=== PATIENT | male | born 1965 | race Caucasian/White ===

== ENCOUNTER 2017-07-09 14:36 | Emergency (ER) | payer MEDICARE, OTHER ==
[2017-07-09] MEDS ORDERED: SODIUM CHLORIDE 0.9% 1,000 ML IV ONE (15:33)
[2017-07-09 15:55] LABS: Basophils % (A) 0 %; Eosinophils # (A) 0.1 k/uL (0-0.7); Eosinophils % (A) 1 %; HCT 44.3 % (39.0-53.0); HGB 15.4 gm/dL (13.0-17.5); Lymphocytes # (A) 1.7 k/uL (1.0-4.8); Lymphocytes % (A) 17 %; MCH 29.9 pg (25.0-35.0); MCHC 34.9 g/dL (31.0-37.0); MCV 85.9 fL (80.0-100.0); Mean Platelet Volume 7.2; Monocytes # (A) 0.7 k/uL (0-1.0); Monocytes % (A) 8 %; Neutrophils % (A) 72 %; Platelet Count 193 k/uL (150-450); RBC 5.16 m/uL (4.30-5.90); RDW 12.5 % (11.5-15.5); WBC 9.6 k/uL (3.8-10.6)
[2017-07-09 15:59] LABS: Appearance,Urine Clear (Clear); Bilirubin,Urine Negative (Negative); Blood,Urine Negative (Negative); Color,Urine Light Yellow; Glucose,Urine (UA) Negative (Negative); Ketones,Urine Negative (Negative); Leukocyte Esterase,Urine Negative (Negative); Nitrite,Urine Negative (Negative); Protein,Urine Negative (Negative); Specific Gravity,Urine 1.008 (1.001-1.035); Urobilinogen,Urine <2.0 mg/dL (<2.0)
[2017-07-09 16:09] LABS: ALT 18 U/L (21-72); AST 16 U/L (17-59); Albumin 3.7 g/dL (3.5-5.0); Alcohol <10 mg/dL; Alkaline Phosphatase 52 U/L (38-126); Anion Gap 11 mmol/L; Blood Urea Nitrogen 11 mg/dL (9-20); Calcium 8.8 mg/dL (8.4-10.2); Carbon Dioxide 26 mmol/L (22-30); Chloride 106 mmol/L (98-107); Glucose 81 mg/dL (74-99); Lipase 46 U/L (23-300); Potassium 4.2 mmol/L (3.5-5.1); Sodium 143 mmol/L (137-145); Total Bilirubin 0.6 mg/dL (0.2-1.3); Total Protein 6.1 g/dL (6.3-8.2)
[2017-07-09 16:13] LABS: Phencyclidine Screen,Urine Not Detected (NotDetected); Urn Cannabinoid Scrn Not Detected (NotDetected)
[2017-07-09 16:14] LABS: Amphetamine Screen,Urine Not Detected (NotDetected); Barbiturate Screen,Urine Not Detected (NotDetected); Benzodiazepines Screen,Urine Not Detected (NotDetected); Cocaine Screen,Urine Not Detected (NotDetected); Methadone Screen, Urine Not Detected (NotDetected); Opiate Screen,Urine Not Detected (NotDetected); Oxycodone Screen, Urine Not Detected (NotDetected); Tricyclic Antidepressant,Urine Not Detected (NotDetected)
--- NOTE | 2017-07-09 16:39 | ED ---
General Adult HPI - General Chief complaint: Anxiety Stated complaint: mental health Time Seen by Provider: 07/09/17 14:59 Source: patient, RN notes reviewed Mode of arrival: ambulatory Limitations: no limitations - History of Present Illness Initial comments: This is a 51-year-old male presents emergency Department with complaints of generalized fatigue. Patient states that he feels that his medications are making him tired and is told his psychiatrist and primary this. Patient states is not suicidal or homicidal. He states that he does have underlying issues anxiety but states that usually anxiety related to not being able 3 days viable. Patient denies any physical complaints including chest pain, shortness breath, headache, dizziness, nausea, vomiting, or constipation. He states he's eating well. He denies any alcohol abuse no drug abuse. Patient has no abdominal pain. - Related Data Home Medications Medication Instructions Recorded Confirmed Atorvastatin [Lipitor] 40 mg PO DAILY 07/09/17 07/09/17 Cholecalciferol [Vitamin D3] 2,000 unit PO DAILY 07/09/17 07/09/17 Losartan Potassium [Cozaar] 25 mg PO DAILY 07/09/17 07/09/17 Metoprolol Succinate (ER) [Toprol 25 mg PO DAILY 07/09/17 07/09/17 Xl] Previous Rx's Medication Instructions Recorded Aspirin 81 mg PO DAILY #30 chew 02/27/16 Divalproex [Depakote] 1,000 mg PO HS #60 tablet. 02/27/16 Allergies Allergy/AdvReac Type Severity Reaction Status Date / Time No Known Allergies Allergy Verified 07/09/17 15:41 Review of Systems ROS Statement: Those systems with pertinent positive or pertinent negative responses have been documented in the HPI. ROS Other: All systems not noted in ROS Statement are negative. Past Medical History Past Medical History: Hyperlipidemia, Hypertension History of Any Multi-Drug Resistant Organisms: None Reported Past Surgical History: No Surgical Hx Reported Past Psychological History: Schizophrenia Smoking Status: Current every day smoker Past Alcohol Use History: None Reported Past Drug Use History: None Reported - Past Family History Father Additional Family Medical History / Comment(s): Father is alive at age 85. Patient denies doing any of this history. Mother Additional Family Medical History / Comment(s): Mother is alive at age 84. Patient denies knowing any of her medical history. Brother(s) Additional Family Medical History / Comment(s): Patient has 2 brothers and one sister does not know other medical history. Patient does not have any children. General Exam Limitations: no limitations General appearance: alert, in no apparent distress Head exam: Present: atraumatic, normocephalic, normal inspection Eye exam: Present: normal appearance, PERRL, EOMI. Absent: scleral icterus, conjunctival injection, periorbital swelling ENT exam: Present: normal exam, normal oropharynx, mucous membranes moist, TM's normal bilaterally, normal external ear exam Neck exam: Present: normal inspection, full ROM. Absent: tenderness, meningismus, lymphadenopathy Respiratory exam: Present: normal lung sounds bilaterally. Absent: respiratory distress, wheezes, rales, rhonchi, stridor Cardiovascular Exam: Present: regular rate, normal rhythm, normal heart sounds. Absent: systolic murmur, diastolic murmur, rubs, gallop, clicks GI/Abdominal exam: Present: soft, normal bowel sounds. Absent: distended, tenderness, guarding, rebound, rigid Back exam: Absent: CVA tenderness (R), CVA tenderness (L) Neurological exam: Present: alert, oriented X3, CN II-XII intact Psychiatric exam: Present: normal affect, normal mood. Absent: homicidal ideation, suicidal ideation Skin exam: Present: warm, dry, intact, normal color. Absent: rash Course Vital Signs 07/09/17 14:48 Temperature 99.1 F Pulse Rate 100 Respiratory 20 Rate Blood Pressure 118/73 O2 Sat by Pulse 97 Oximetry - Reevaluation(s) Reevaluation #1: 07/09/17 18:31 Patient is eating a sandwich in the room in no distress, has improved at this time. Patient was updated on the results. Medical Decision Making - Medical Decision Making 31-year-old unrestrained for fatigue. Patient lab work is unremarkable he is tolerated food in the emergency Department an IV fluids and states he feels improved. Patient has no specific complaints is not homicidal is not suicidal he has no depression he states that his anxiety is under control. Patient we discharged at this time return parameters were discussed. - Lab Data Result diagrams: 07/09/17 15:40 07/09/17 15:40 Lab Results 07/09/17 07/09/17 07/09/17 Range/Units 15:40 15:40 15:40 WBC 9.6 (3.8-10.6) k/uL RBC 5.16 (4.30-5.90) m/uL Hgb 15.4 (13.0-17.5) gm/dL Hct 44.3 (39.0-53.0) % MCV 85.9 (80.0-100.0) fL MCH 29.9 (25.0-35.0) pg MCHC 34.9 (31.0-37.0) g/dL RDW 12.5 (11.5-15.5) % Plt Count 193 (150-450) k/uL Neutrophils % 72 % Lymphocytes % 17 % Monocytes % 8 % Eosinophils % 1 % Basophils % 0 % Neutrophils # 7.0 (1.3-7.7) k/uL Lymphocytes # 1.7 (1.0-4.8) k/uL Monocytes # 0.7 (0-1.0) k/uL Eosinophils # 0.1 (0-0.7) k/uL Basophils # 0.0 (0-0.2) k/uL Sodium 143 (137-145) mmol/L Potassium 4.2 (3.5-5.1) mmol/L Chloride 106 (98-107) mmol/L Carbon Dioxide 26 (22-30) mmol/L Anion Gap 11 mmol/L BUN 11 (9-20) mg/dL Creatinine 0.70 (0.66-1.25) mg/dL Est GFR (CKD-EPI)AfAm >90 (>60 ml/min/1.73 sqM) Est GFR (CKD-EPI)NonAf >90 (>60 ml/min/1.73 sqM) Glucose 81 (74-99) mg/dL Calcium 8.8 (8.4-10.2) mg/dL Total Bilirubin 0.6 (0.2-1.3) mg/dL AST 16 L (17-59) U/L ALT 18 L (21-72) U/L Alkaline Phosphatase 52 (38-126) U/L Total Protein 6.1 L (6.3-8.2) g/dL Albumin 3.7 (3.5-5.0) g/dL Lipase 46 (23-300) U/L Urine Color Urine Appearance (Clear) Urine pH (5.0-8.0) Ur Specific [place] (1.001-1.035) Urine Protein (Negative) Urine Glucose (UA) (Negative) Urine Ketones (Negative) Urine Blood (Negative) Urine Nitrite (Negative) Urine Bilirubin (Negative) Urine Urobilinogen (<2.0) mg/dL Ur Leukocyte Esterase (Negative) Urine Opiates Screen (NotDetected) Ur Oxycodone Screen (NotDetected) Urine Methadone Screen (NotDetected) Ur Propoxyphene Screen (NotDetected) Ur Barbiturates Screen (NotDetected) Valproic Acid 65.1 ug/mL U Tricyclic Antidepress (NotDetected) Ur Phencyclidine Scrn (NotDetected) Ur Amphetamines Screen (NotDetected) U Methamphetamines Scrn (NotDetected) U Benzodiazepines Scrn (NotDetected) Urine Cocaine Screen (NotDetected) U Marijuana (THC) Screen (NotDetected) Serum Alcohol <10 mg/dL 07/09/17 Range/Units 15:41 WBC (3.8-10.6) k/uL RBC (4.30-5.90) m/uL Hgb (13.0-17.5) gm/dL Hct (39.0-53.0) % MCV (80.0-100.0) fL MCH (25.0-35.0) pg MCHC (31.0-37.0) g/dL RDW (11.5-15.5) % Plt Count (150-450) k/uL Neutrophils % % Lymphocytes % % Monocytes % % Eosinophils % % Basophils % % Neutrophils # (1.3-7.7) k/uL Lymphocytes # (1.0-4.8) k/uL Monocytes # (0-1.0) k/uL Eosinophils # (0-0.7) k/uL Basophils # (0-0.2) k/uL Sodium (137-145) mmol/L Potassium (3.5-5.1) mmol/L Chloride (98-107) mmol/L Carbon Dioxide (22-30) mmol/L Anion Gap mmol/L BUN (9-20) mg/dL Creatinine (0.66-1.25) mg/dL Est GFR (CKD-EPI)AfAm (>60 ml/min/1.73 sqM) Est GFR (CKD-EPI)NonAf (>60 ml/min/1.73 sqM) Glucose (74-99) mg/dL Calcium (8.4-10.2) mg/dL Total Bilirubin (0.2-1.3) mg/dL AST (17-59) U/L ALT (21-72) U/L Alkaline Phosphatase (38-126) U/L Total Protein (6.3-8.2) g/dL Albumin (3.5-5.0) g/dL Lipase (23-300) U/L Urine Color Light Yellow Urine Appearance Clear (Clear) Urine pH 7.0 (5.0-8.0) Ur Specific [place] 1.008 (1.001-1.035) Urine Protein Negative (Negative) Urine Glucose (UA) Negative (Negative) Urine Ketones Negative (Negative) Urine Blood Negative (Negative) Urine Nitrite Negative (Negative) Urine Bilirubin Negative (Negative) Urine Urobilinogen <2.0 (<2.0) mg/dL Ur Leukocyte Esterase Negative (Negative) Urine Opiates Screen Not Detected (NotDetected) Ur Oxycodone Screen Not Detected (NotDetected) Urine Methadone Screen Not Detected (NotDetected) Ur Propoxyphene Screen Not Detected (NotDetected) Ur Barbiturates Screen Not Detected (NotDetected) Valproic Acid ug/mL U Tricyclic Antidepress Not Detected (NotDetected) Ur Phencyclidine Scrn Not Detected (NotDetected) Ur Amphetamines Screen Not Detected (NotDetected) U Methamphetamines Scrn Not Detected (NotDetected) U Benzodiazepines Scrn Not Detected (NotDetected) Urine Cocaine Screen Not Detected (NotDetected) U Marijuana (THC) Screen Not Detected (NotDetected) Serum Alcohol mg/dL Disposition Clinical Impression: Fatigue Disposition: HOME SELF-CARE Condition: Stable Instructions: Fatigue (ED) Additional Instructions: Please return to the Emergency Department if symptoms worsen or any other concerns. Is patient prescribed a controlled substance at d/c from ED?: No Referrals: Polo Alejandro MD [STAFF PHYSICIAN] - 1-2 days Time of Disposition: 18:32
[2017-07-09 18:42] VITALS: BP 112/74; PULSE 80; RESP 16; TEMP 97.9
== END 2017-07-09 19:14 | disposition home or self-care (01) ==
LOC: EC 14:36 → EEVIPCON 14:36 → EC 19:14
DX: R53.83 Other fatigue (principal); F41.9 Anxiety disorder, unspecified; E78.5 Hyperlipidemia, unspecified; I10 Essential (primary) hypertension; F17.200 Nicotine dependence, unspecified, uncomplicated; Z79.899 Other long term (current) drug therapy
CPT/HCPCS: 36415; 80053; 80164; 80306; 80320; 81003; 83690; 85025; 96360; 99283

== ENCOUNTER 2018-08-22 11:09 | Observation (INO) | payer MEDICARE, OTHER ==
[2018-08-22] MEDS ORDERED: KETOROLAC 60 MG/2 ML VIAL IM STA (11:34)
--- NOTE | 2018-08-22 11:37 | ED ---
Lower Extremity Injury HPI - General Chief Complaint: Extremity Injury, Lower Stated Complaint: HIP PAIN Time Seen by Provider: 08/22/18 11:24 Source: patient, EMS Mode of arrival: ambulatory Limitations: altered mental status - History of Present Illness Initial Comments: 52-year-old male with history of schizophrenia/seizure disorder presenting today for chief complaint of bilateral hip pain x 2-3 weeks. Patient states he fell to 3 weeks ago he states he has had hip pain since. Patient states he has had difficulty walking secondary to the pain. Denies back pain. Patient denies numbness tingling loss sensation loss of bowel bladder control urinary retention of the lower extremity. He denies any fever chills or IV drug use. Patient is a member added [facility] home. His bedroom in on the second floor and he is unable to ambulate up the stairs. Patient denies hitting his head or any other complaints. I did contact [facility] home, who reiterated story I was told by patient. Patient denies any recent fever, chills, shortness of breath, chest pain, abdominal pain, nausea or vomiting, dysuria or hematuria, constipation or diarrhea, headaches or visual changes, or any other complaints. - Related Data Home Medications Medication Instructions Recorded Confirmed Atorvastatin [Lipitor] 40 mg PO HS 07/09/17 08/23/18 Losartan Potassium [Cozaar] 25 mg PO DAILY 07/09/17 08/23/18 Metoprolol Succinate (ER) [Toprol 25 mg PO DAILY 07/09/17 08/23/18 XL] Acetaminophen [Tylenol] 325 mg PO Q4H PRN 08/22/18 08/23/18 Aspirin EC [Ecotrin] 325 mg PO Q4H PRN 08/22/18 08/23/18 Cholecalciferol (Vitamin D3) 2,000 unit PO DAILY 08/22/18 08/23/18 [Vitamin D3] Docusate [Colace] 100 mg PO DAILY PRN 08/22/18 08/23/18 Ashish-Tin 15 ml PO Q4H PRN 08/22/18 08/23/18 Loperamide [Imodium] 2 mg PO QID PRN 08/22/18 08/23/18 Magnesium Hydroxide [Milk of 2,400 mg PO DAILY PRN 08/22/18 08/23/18 Magnesia] Neomycin/Bacitracin/Polymyxinb 1 applic TOPICAL DAILY PRN 08/22/18 08/23/18 [Neosporin Ointment] Psyllium Husk 100% [Metamucil 6 gm PO TID PRN 08/22/18 08/23/18 Packet] Sudogest 60 Mg 60 mg PO DAILY PRN 08/22/18 08/23/18 cloZAPine [Clozaril] 100 mg PO HS 08/22/18 08/23/18 diphenhydrAMINE HCL [Benadryl] 25 mg PO Q4H PRN 08/22/18 08/23/18 traMADol HCL [Ultram] 50 mg PO TID PRN 08/22/18 08/23/18 Aspirin EC [Ecotrin Low Dose] 81 mg PO DAILY 08/23/18 08/23/18 Previous Rx's Medication Instructions Recorded Divalproex [Depakote] 1,000 mg PO HS #60 tablet. 02/27/16 Allergies Allergy/AdvReac Type Severity Reaction Status Date / Time sulfamethoxazole Allergy Unknown Verified 08/22/18 11:34 [From Bactrim] trimethoprim [From Bactrim] Allergy Unknown Verified 08/22/18 11:34 Review of Systems ROS Statement: Those systems with pertinent positive or pertinent negative responses have been documented in the HPI. ROS Other: All systems not noted in ROS Statement are negative. Past Medical History Past Medical History: Hyperlipidemia, Hypertension History of Any Multi-Drug Resistant Organisms: None Reported Past Surgical History: No Surgical Hx Reported Past Psychological History: Schizophrenia Smoking Status: Current every day smoker Past Alcohol Use History: None Reported Past Drug Use History: None Reported - Past Family History Father Additional Family Medical History / Comment(s): Father is alive at age 85. Patient denies doing any of this history. Mother Additional Family Medical History / Comment(s): Mother is alive at age 84. Patient denies knowing any of her medical history. Brother(s) Additional Family Medical History / Comment(s): Patient has 2 brothers and one sister does not know other medical history. Patient does not have any children. General Exam - General Exam Comments Initial Comments: General: The patient is awake and alert, in no distress Eye: +3 mm pupils are equal, round and reactive to light, extra-ocular movements are intact. No nystagmus. There is normal conjunctiva bilaterally. No signs of icterus. Ears, nose, mouth and throat: There are moist mucous membranes and no oral lesions. Neck: The neck is supple, there is no tenderness or JVD. Cardiovascular: There is a regular rate and rhythm. No murmur, rub or gallop is appreciated. Respiratory: Lungs are clear to auscultation, respirations are non-labored, breath sounds are equal. No wheezes, stridor, rales, or rhonchi. Gastrointestinal: Soft, non-distended, non-tender abdomen without masses or organomegaly noted. There is no rebound or guarding present. No CVA tenderness. Bowel sounds are unremarkable. Musculoskeletal: Normal inspection of the thoracic and lumbar spine. There is no midline tenderness to palpation of the thoracic or lumbar spine. No paravert ebral tenderness. Normal ROM at the hips, knees and ankles b/l, tender to ROM of hips. Strength 5/5 of the LE b/l. Sensation intact of the LE b/l. DP pulses equal bilaterally 2+. Neurological: A&O x 3. CN II-XII intact, There are no obvious motor or sensory deficits. Coordination appears grossly intact. Speech is normal. Skin: Skin is warm and dry and no rashes or lesions are noted. Psychiatric: Cooperative Limitations: altered mental status Course Vital Signs 08/22/18 08/22/18 11:17 20:28 Temperature 98 F 97.5 F L Pulse Rate 79 72 Respiratory 18 18 Rate Blood Pressure 99/63 117/64 O2 Sat by Pulse 94 L 96 Oximetry Medical Decision Making - Medical Decision Making 52-year-old male presenting today for chief complaint of bilateral hip pain. Patient history of fall to 3 weeks ago. States the pain is been increasing make it difficult to walk. Patient denies any midline back pain. Patient was able to stand and weight bear, however stated it was painful and refused to fully walk. The strength was leg was intact and sensation on exam. Neurovascular exam wnl. No physical signs of trauma on exam. No focal neurological deficits. Pt denies signs of cauda equina. At the end of patients visit the [facility] home memmber came stating there is no arrangement available for a walker or first floor bedroom, home not safe. Patient will be admitted for social work consultation and placement. Orthopedics will be on consult. I discussed case wtih both Dr. Cross and Dr. Galvez, Dr. Galvez spoke with admitting provider and put placement order in. - Lab Data Result diagrams: 08/23/18 07:12 08/23/18 07:12 Lab Results 08/22/18 08/22/18 Range/Units 16:13 16:13 WBC 7.2 (3.8-10.6) k/uL RBC 4.76 (4.30-5.90) m/uL Hgb 13.8 (13.0-17.5) gm/dL Hct 41.3 (39.0-53.0) % MCV 86.6 (80.0-100.0) fL MCH 28.9 (25.0-35.0) pg MCHC 33.4 (31.0-37.0) g/dL RDW 12.6 (11.5-15.5) % Plt Count 178 (150-450) k/uL Neutrophils % 59 % Lymphocytes % 29 % Monocytes % 6 % Eosinophils % 3 % Basophils % 1 % Neutrophils # 4.2 (1.3-7.7) k/uL Lymphocytes # 2.1 (1.0-4.8) k/uL Monocytes # 0.5 (0-1.0) k/uL Eosinophils # 0.2 (0-0.7) k/uL Basophils # 0.0 (0-0.2) k/uL Sodium 142 (137-145) mmol/L Potassium 3.6 (3.5-5.1) mmol/L Chloride 111 H (98-107) mmol/L Carbon Dioxide 27 (22-30) mmol/L Anion Gap 4 mmol/L BUN 9 (9-20) mg/dL Creatinine 0.69 (0.66-1.25) mg/dL Est GFR (CKD-EPI)AfAm >90 (>60 ml/min/1.73 sqM) Est GFR (CKD-EPI)NonAf >90 (>60 ml/min/1.73 sqM) Glucose 118 H (74-99) mg/dL Calcium 8.5 (8.4-10.2) mg/dL Disposition Clinical Impression: History of fall, Bilateral hip pain, Inability to walk Disposition: ADMITTED IP TO THIS [facility] Condition: Stable Is patient prescribed a controlled substance at d/c from ED?: No Time of Disposition: 14:15 Decision Date: 08/22/18 Decision Time: 15:43
--- NOTE | 2018-08-22 11:58 | XR ---
Lumbar spine HISTORY: Trauma 2-3 weeks prior, pain 3 views of the lumbar spine Lumbar vertebral bodies show preserved height, alignment, and bone mineralization. Sclerosis present in the posterior elements of the lower lumbar spine compatible with facet arthropathy. Loss of disc h eight present L5-S1. There is multilevel spondylosis. IMPRESSION: Degenerative disc disease and facet arthropathy. No acute fracture or subluxation evident .
--- NOTE | 2018-08-22 12:00 | XR ---
EXAMINATION TYPE: XR Hip Bilateral and AP pelvis DATE OF EXAM: 08/22/2018 COMPARISON: NONE HISTORY: Trauma to 2 3 weeks prior, pain TECHNIQUE: A single AP view of the pelvis is obtained. Two views of the bilateral hip are obtained. FINDINGS: There is no acute fracture/dislocation evident in the pelvis. The hip and sacroiliac join ts appear symmetric and unremarkable. The overlying soft tissue appears unremarkable. Two views of bilateral hips show no acute fracture or dislocation. No focal lytic or sclerotic lesio n seen in the proximal bilateral femur. The overlying soft tissue is unremarkable. IMPRESSION: There is no acute fracture or dislocation in the pelvis or bilateral hip.
--- NOTE | 2018-08-22 13:34 | CT ---
EXAMINATION TYPE: CT pelvis wo con DATE OF EXAM: 08/22/2018 COMPARISON: Bilateral hip radiographs of the same date HISTORY: Hip pain while walking. Inability to stand. CT DLP: 336.4 mGycm Automated exposure control for dose reduction was used. FINDINGS: Prostate gland is heterogenous and nonenlarged. Bowel is nondilated. No suspicious adenopathy in the pelvis. Moderate atherosclerosis is seen in the abdominal aorta and its branches. Urinary bladder is unremarkable. Lucency of the right iliac bone measures 9 mm. There is no acute fracture or dislocatio n of the hips. Moderate bilateral femoral acetabular arthropathy are seen with small marginal osteoph ytes and joint space narrowing as well as mild acetabular roof sclerosis. Sacroiliac joints demonstra te no evidence of joint space finding. Transitional vertebrae is seen at L5. Lower lumbosacral spine maintains normal alignment. IMPRESSION: NO ACUTE FRACTURE OR MALALIGNMENT OF THE PELVIS. MODERATE FEMORAL ACETABULAR ARTHROPATHY, RIGHT GREAT ER THAN LEFT.
[2018-08-22] MEDS ORDERED: IBUPROFEN 400 MG TAB PO PRN (15:52)
[2018-08-22] MEDS ORDERED: ACETAMINOPHEN TAB 325 MG TAB PO PRN (15:52)
[2018-08-22] MEDS ORDERED: NICOTINE 14MG/24HR PATCH TRANSDERM ONE (16:00)
[2018-08-22 16:28] LABS: Basophils % (A) 1 %; Eosinophils # (A) 0.2 k/uL (0-0.7); Eosinophils % (A) 3 %; HCT 41.3 % (39.0-53.0); HGB 13.8 gm/dL (13.0-17.5); Lymphocytes # (A) 2.1 k/uL (1.0-4.8); Lymphocytes % (A) 29 %; MCH 28.9 pg (25.0-35.0); MCHC 33.4 g/dL (31.0-37.0); MCV 86.6 fL (80.0-100.0); Mean Platelet Volume 7.1; Monocytes # (A) 0.5 k/uL (0-1.0); Monocytes % (A) 6 %; Neutrophils # (A) 4.2 k/uL (1.3-7.7); Neutrophils % (A) 59 %; Platelet Count 178 k/uL (150-450); RBC 4.76 m/uL (4.30-5.90); RDW 12.6 % (11.5-15.5); WBC 7.2 k/uL (3.8-10.6)
[2018-08-22 16:31] LABS: African American GFR (CKD) >90 (>60 ml/min/1.73 sqM); Anion Gap 4 mmol/L; Blood Urea Nitrogen 9 mg/dL (9-20); Calcium 8.5 mg/dL (8.4-10.2); Carbon Dioxide 27 mmol/L (22-30); Chloride 111 mmol/L (98-107); Glucose 118 mg/dL (74-99); Potassium 3.6 mmol/L (3.5-5.1); Sodium 142 mmol/L (137-145)
[2018-08-23] MEDS ORDERED: LOPERAMIDE 2 MG CAP PO PRN (01:46)
[2018-08-23] MEDS ORDERED: NON-FORMULARY DRUG (Aspirin Ec 325 MG) PO PRN (01:46)
[2018-08-23] MEDS ORDERED: traMADol 50 MG TAB PO PRN (01:46)
[2018-08-23] MEDS ORDERED: diphenhydrAMINE 25 MG CAP PO PRN (01:46)
[2018-08-23] MEDS ORDERED: PSEUDOEPHEDRINE 30 MG TAB PO PRN (01:46)
[2018-08-23] MEDS ORDERED: PSYLLIUM HUSK 100% 6 GM PACKET PO PRN (01:46)
[2018-08-23] MEDS ORDERED: MAGNESIUM HYDROXIDE 2,400 MG/10 ML CUP PO PRN (01:46)
[2018-08-23] MEDS ORDERED: [UNRECOGNIZED DRUG - OTHER] PO PRN (01:46)
[2018-08-23] MEDS ORDERED: DOCUSATE 100 MG CAP PO PRN (01:46)
[2018-08-23] MEDS ORDERED: NEOMYCIN-BACITRACIN-POLY OINT 14 GM TUBE TOPICAL PRN (01:46)
[2018-08-23 07:38] VITALS: BP 93/57; PULSE 66; RESP 18; TEMP 98
--- NOTE | 2018-08-23 07:58 | HP ---
HISTORY AND PHYSICAL DATE OF SERVICE: 08/22/2018 CHIEF COMPLAINT: Hip pain and difficulty walking. HISTORY OF PRESENT ILLNESS: This 52-year-old gentleman with a past medical history of multiple medical problems including hypertension, hyperlipidemia, history of schizophrenia, not being followed by any primary physician, presented complaining of weakness. The patient also complains of hip pain, bilateral hip pain for the last 2-3 days. Patient apparently living in a 2nd floor. Patient unable to return home because of the inability to negotiate steps. The patient came to [facility] for further evaluation and treatment. The [facility] home was contacted. There is no history of fever, rigors. No history of headache, loss of consciousness or seizures. PAST MEDICAL HISTORY: Hypertension, hyperlipidemia, schizophrenia. MEDICATIONS: Home medications are: 1. Neomycin. 2. Ultram 50 mg t.i.d. p.r.n. 3. Magnesium oxide 2.4 grams daily p.r.n. 4. Metamucil. 5. Imodium. 6. Colace 100 mg daily. 7. Benadryl. 8. Ecotrin. 9. Vitamin D3 2000 daily. 10.Tylenol 325 mg q.4 p.r.n. 11.Clozaril 100 mg q.h.s. 12.Toprol-XL 25 mg p.o. daily. 13.Cozaar 25 mg p.o. daily. 14.Depakote 1000 mg q.h.s. 15.Lipitor 40 mg q.h.s. 16.Aspirin 81 mg p.o. daily. ALLERGIES: BACTRIM. FAMILY HISTORY: No history of heart disease or strokes in the family. SOCIAL HISTORY: History of smoking, continued ongoing. REVIEW OF SYSTEMS: ENT: No diminished vision. No diminished hearing. CARDIOVASCULAR: S1, S2. No angina. RESPIRATION: No cough. GI no nausea or vomiting. no dysuria. CENTRAL NERVOUS SYSTEM: As mention earlier. ALLERGY/IMMUNOLOGY: No asthma or hayfever. MUSCULOSKELETAL as mentioned earlier. HEMATOLOGY/ONCOLOGY: No history of anemia. ENDOCRINE: No history of diabetes or hypothyroidism. CONSTITUTIONAL: As mentioned earlier. DERMATOLOGY: Negative. RHEUMATOLOGY: Negative. PSYCHIATRIC: As mentioned earlier. PHYSICAL EXAMINATION: GENERAL: The patient is alert and oriented times three. VITAL SIGNS: Pulse 54, blood pressure 106/58, respirations 16, temperature 98.2, pulse ox 98% on room air. HEENT: Conjunctivae normal. Oral mucosa moist. NECK is no jugular venous distention. No carotid bruit. No lymph node enlargement. CARDIOVASCULAR system: S1, S2. No S3, no S4. RESPIRATIONS: Breath sounds diminished in the bases. No rhonchi. No crackles. ABDOMEN: Soft, nontender. No mass palpable. LEGS: No edema. No swelling. NERVOUS SYSTEM as mentioned earlier. Moves all 4 limbs. No focal motor or sensory deficits. LYMPHATICS: No lymph nodes palpable in the neck or axilla. SKIN: No ulcer, rash or bleeding. JOINTS: No active deforming arthropathy. LABS: CBC within normal limits. Sodium 140, potassium 3.6, glucose 118. ASSESSMENT: 1. Bilateral hip pain possible degenerative joint disease. 2. Possible degenerative joint disease. 3. Generalized weakness possibly secondary to degenerative joint disease. 4. Hypertension. 5. Hyperlipidemia. 6. History of schizophrenia. 7. History of nicotine dependence, continued ongoing. RECOMMENDATIONS AND DISCUSSION: In this 52-year-old gentleman who presented with multiple medical issues, at this time, we will monitor the patient closely. Continue the current medications. Management. Symptomatic treatment. Orthopedics has been consulted. I would also recommend PT/OT evaluation. Social Work and Case Management consultation to evaluate the home situation so that the patient can return. Otherwise, lumbosacral and pelvis x-rays was reviewed, showed DJD. No fractures were noted in the the CT scan. Atrophy was noted. MMODL / IJN: [id number] /
[2018-08-23 08:04] LABS: Basophils # (A) 0.1 k/uL (0-0.2); Basophils % (A) 1 %; Eosinophils # (A) 0.3 k/uL (0-0.7); Eosinophils % (A) 3 %; HGB 14.4 gm/dL (13.0-17.5); Lymphocytes # (A) 1.3 k/uL (1.0-4.8); Lymphocytes % (A) 14 %; MCH 28.8 pg (25.0-35.0); MCHC 32.7 g/dL (31.0-37.0); Mean Platelet Volume 7.1; Monocytes # (A) 0.6 k/uL (0-1.0); Monocytes % (A) 6 %; Neutrophils # (A) 6.9 k/uL (1.3-7.7); Neutrophils % (A) 74 %; Platelet Count 168 k/uL (150-450); RDW 12.6 % (11.5-15.5); WBC 9.2 k/uL (3.8-10.6)
[2018-08-23 08:06] LABS: African American GFR (CKD) >90 (>60 ml/min/1.73 sqM); Anion Gap 7 mmol/L; Blood Urea Nitrogen 16 mg/dL (9-20); C Reactive Protein 6.4 mg/L (<10.0); Calcium 8.6 mg/dL (8.4-10.2); Carbon Dioxide 26 mmol/L (22-30); Chloride 107 mmol/L (98-107); Glucose 104 mg/dL (74-99); Potassium 3.7 mmol/L (3.5-5.1); Sodium 140 mmol/L (137-145)
[2018-08-23] MEDS ORDERED: ASPIRIN 81 MG PO SCH (09:00)
[2018-08-23] MEDS ORDERED: CHOLECALCIFEROL 1,000 UNIT TAB PO SCH (09:00)
[2018-08-23] MEDS ORDERED: NICOTINE 14MG/24HR PATCH TRANSDERM SCH (09:00)
[2018-08-23] MEDS ORDERED: METOPROLOL SUCCINATE (ER) 25 MG TAB.ER.24H PO SCH (09:00)
[2018-08-23] MEDS ORDERED: LOSARTAN 25 MG TAB PO SCH (09:00)
--- NOTE | 2018-08-23 10:18 | P.CNOR ---
History of Present Illness - [facility] Consult date: 08/23/18 Consult reason: joint pain History of present illness: Patient is a 52-year-old male who presented to [facility] in hospital yesterday afternoon with regards to bilateral hip pain. Patient had a recent fall about 3 weeks ago, he states that the hips hadn't bothered him much since the fall. States that the pain in the hip started about 3 days ago. Patient states that he's been doing a lot of walking recently. Patient does live in an adult foster care, is a history of schizophrenia and other medical comorbidities. He's been having difficulty utilizing the stairs of the last few days, and with the pain he did report to the hospital. Multiple imaging lab tests were done. Images demonstrated no acute fractures or dislocations involving the lumbar spine or hip area. Images demonstrated moderate osteoarthritis of both hips. X-rays of the lumbar spine demonstrated some facet arthropathy in the lower lumbar spine. Patient denies any previous surgery of the lumbar spine or bilateral hips. He has no other orthopedic complaints at this time. Currently denies any chest pain, shortness of breath, fever or chills. Review of Systems Constitutional: Reports as per HPI Past Medical History Past Medical History: Hyperlipidemia, Hypertension History of Any Multi-Drug Resistant Organisms: None Reported Past Surgical History: No Surgical Hx Reported Past Psychological History: Schizophrenia Additional Psychological History / Comment(s): Pt. states that he does not have schizophrenia. Smoking Status: Current every day smoker Past Alcohol Use History: None Reported Additional Past Alcohol Use History / Comment(s): Patient is a smoker half pack of cigarettes per day since he was 22 years of age. He denies any medical marijuana, marijuana, street drug or alcohol use. Past Drug Use History: None Reported - Past Family History Father Additional Family Medical History / Comment(s): Father is alive at age 85. Patient denies doing any of this history. Mother Additional Family Medical History / Comment(s): Mother is . Patient denies knowing any of her medical history. Brother(s) Additional Family Medical History / Comment(s): Patient has 2 brothers and one sister does not know other medical history. Patient does not have any children. Medications and Allergies Home Medications Medication Instructions Recorded Confirmed Type Aspirin 81 mg PO DAILY #30 chew 02/27/16 08/22/18 Rx Divalproex [Depakote] 1,000 mg PO HS #60 tablet. 02/27/16 08/22/18 Rx Atorvastatin [Lipitor] 40 mg PO HS 07/09/17 08/22/18 History Losartan Potassium [Cozaar] 25 mg PO DAILY 07/09/17 08/22/18 History Metoprolol Succinate (ER) [Toprol 25 mg PO DAILY 07/09/17 08/22/18 History Xl] Acetaminophen [Tylenol] 325 mg PO Q4H PRN 08/22/18 08/22/18 History Aspirin EC [Ecotrin] 325 mg PO Q4H PRN 08/22/18 08/22/18 History Cholecalciferol (Vitamin D3) 2,000 unit PO DAILY 08/22/18 08/22/18 History [Vitamin D3] Docusate [Colace] 100 mg PO DAILY PRN 08/22/18 08/22/18 History Ashish-Tin 15 ml PO Q4H PRN 08/22/18 08/22/18 History Loperamide [Imodium] 2 mg PO QID PRN 08/22/18 08/22/18 History Magnesium Hydroxide [Milk of 2,400 mg PO DAILY PRN 08/22/18 08/22/18 History Magnesia] Neomycin/Bacitracin/Polymyxinb 1 applic TOPICAL DAILY PRN 08/22/18 08/22/18 History [Neosporin Ointment] Psyllium Husk 100% [Metamucil 6 gm PO TID PRN 08/22/18 08/22/18 History Packet] Sudogest 60 Mg 60 mg PO DAILY PRN 08/22/18 08/22/18 History cloZAPine [Clozaril] 100 mg PO HS 08/22/18 08/22/18 History diphenhydrAMINE HCL [Benadryl] 25 mg PO Q4H PRN 08/22/18 08/22/18 History traMADol HCL [Ultram] 50 mg PO TID PRN 08/22/18 08/22/18 History Allergies Allergy/AdvReac Type Severity Reaction Status Date / Time sulfamethoxazole Allergy Unknown Verified 08/22/18 11:34 [From Bactrim] trimethoprim [From Bactrim] Allergy Unknown Verified 08/22/18 11:34 Physical Examination General orthopedic exam: Patient N's states most the pain is in the lower buttock region and sometimes in the lower back area. He notes most of this with ambulation. No pain with range of motion of the bilateral hips, including both external and internal rotation. He is able to lift both legs actively and flex past 90 with no pain. He has no groin pain. There is no pain with palpation over the greater trochanter. No tenderness with palpation throughout the lower legs bilaterally, this including knees, foot and ankle. Calf is soft, tenderness with palpation. Plantar flexion, dorsiflexion, EHL, FHL are intact. Distal neurovascular exam is intact. No pain with palpation throughout the lumbar spine and paravertebral muscles Results - Labs Labs: Abnormal Lab Results - Last 24 Hours (Table) 08/22/18 08/23/18 Range/Units 16:13 07:12 Chloride 111 H (98-107) mmol/L Glucose 118 H 104 H (74-99) mg/dL H & H 08/22/18 08/23/18 Range/Units 16:13 07:12 Hgb 13.8 14.4 (13.0-17.5) gm/dL Hct 41.3 44.0 (39.0-53.0) % Result Diagrams: 08/23/18 07:12 08/23/18 07:12 - Diagnostic results Hip x-ray: report reviewed, image reviewed Lumbar AP/lateral x-ray: report reviewed, image reviewed Assessment and Plan Plan: Imaging: Multiple x-rays were done, including x-rays of the lumbar spine and bilateral hips along with a CT of the hips. Images demonstrated no acute fractures or dislocations. Moderate arthritis noted in the bilatera hips, notable degenerative disc disease of the lumbar spine, more significant and L4/L5, L5/S1 Assessment: 1. Low back/buttock region pain 2. Lumbar degenerative disc disease 3. Bilateral hip osteoarthritis 4. Other medical comorbidities Plan: I was able to discuss the case, including the physical exam findings and imaging studies with my attending Dr. Moore. No orthopedic surgical intervention needed at this time. I imagine this is a combination of overuse with recent increase in long walks and his history of degenerative disc disease in his lumbar spine. His physical exam findings do not appear to reveal any hip pathology at this time Recommend internal medicine recommendations for pain control, likely would benefit from an oral anti-inflammatory Recommend weight-bear with a walker, physical therapy evaluation. We'll be available for any further questions regarding this patient Time with Patient: Less than 30
[2018-08-23 13:02] LABS: Erythrocyte Sedimentation Rate 2 mm/hr (0-15)
[2018-08-23] MEDS ORDERED: cloZAPine 100 MG TAB PO SCH (21:00)
[2018-08-23] MEDS ORDERED: DIVALPROEX 500 MG TABLET.DR PO SCH (21:00)
[2018-08-23] MEDS ORDERED: ATORVASTATIN 40 MG TAB PO SCH (21:00)
--- NOTE | 2018-08-24 07:39 | DS ---
DISCHARGE SUMMARY DATE OF SERVICE: 08/23/2018. FINAL DIAGNOSES: 1. Bilateral hip pain possible degenerative joint disease. 2. Generalized weakness possibly secondary to degenerative joint disease. 3. Hypertension. 4. Hyperlipidemia. 5. History of schizophrenia. 6. History of nicotine dependence, continued ongoing. 7. Bilateral hip degenerative joint disease and lumbar degenerative joint disease. DISCHARGE DISPOSITION: The patient is being discharged in stable condition with guarded prognosis. HISTORY OF PRESENT ILLNESS: This 52-year-old gentleman with a past medical history of multiple medical problems being admitted with bilateral hip pain and inability to walk, but symptomatic treatment provided. Orthopedics, Dr. Moore saw the patient. The evaluation showed possible degenerative joint disease. The patient is able to ambulate. The patient being discharged in stable condition. Guarded prognosis. On exam, vitals are stable. Cardiovascular: S1, S2. Abdomen soft. Nervous System: No focal deficits. DISCHARGE ADVICE AND MEDICATIONS: 1. Diet is cardiac diet. 2. Activity limited until follow up. 3. Follow up with Dr. Johnson in 1-2 days. 4. Follow up with Ortho as advised and recommended. MEDICATIONS: 1. Benadryl 25 mg q.4 p.r.n. 2. Clozaril 100 mg q.h.s. 3. Colace 100 mg daily p.r.n. 4. Cozaar 25 mg p.o. daily. 5. Ecotrin 320 mg q.4 p.r.n. 6. Imodium 2 mg q.i.d. p.r.n. 7. Ashish-Tin 15 mL p.o. q.4h p.r.n. 8. Lipitor 40 mg q.h.s. 9. Metamucil 6 mL t.i.d. p.r.n. 10.Milk of magnesia 2.4 grams daily p.r.n. 11.Neosporin 1 application daily p.r.n. 12.SudoGest 60 mg daily p.r.n. 13.Toprol-XL 25 mg p.o. daily. 14.Tylenol 325 mg q.4h. 15.Ultram 50 mg t.i.d. p.r.n. 16.Vitamin D3 2000 daily. 17.Depakote 1000 mg q.h.s. Once again the patient being discharged in a stable condition with guarded prognosis. MMODL / IJN: [id number] /
== END 2018-08-23 11:55 | disposition home or self-care (01) ==
LOC: EC 11:09 → 1SOBS 16:37
PROVIDERS: ADMIT Hospitalist; ATTEND Hospitalist
DX: M25.551 Pain in right hip (principal); M25.552 Pain in left hip; R53.1 Weakness; M16.0 Bilateral primary osteoarthritis of hip; M51.37 Other intervertebral disc degeneration, lumbosacral region; M46.96 Unspecified inflammatory spondylopathy, lumbar region; G40.909 Epilepsy, unspecified, not intractable, without status epilepticus; I10 Essential (primary) hypertension; E78.5 Hyperlipidemia, unspecified; F17.210 Nicotine dependence, cigarettes, uncomplicated; R26.2 Difficulty in walking, not elsewhere classified; F20.9 Schizophrenia, unspecified; Z79.82 Long term (current) use of aspirin; Z79.899 Other long term (current) drug therapy; Z88.1 Allergy status to other antibiotic agents; Z88.2 Allergy status to sulfonamides; Z91.81 History of falling
CPT/HCPCS: 96372; 99285; 36415; 80048 ×2; 85652; 85025 ×2; 86140; 72100; 73521; 72192; G0378 ×2; S4990 ×2; J1885

== ENCOUNTER 2018-08-23 13:37 | Observation (INO) | payer MEDICARE, OTHER ==
--- NOTE | 2018-08-23 13:57 | ED ---
General Adult HPI - General Chief complaint: Recheck/Abnormal Lab/Rx Stated complaint: Unsteady gate Time Seen by Provider: 08/23/18 13:50 Source: patient, RN notes reviewed Mode of arrival: EMS - History of Present Illness Initial comments: This is a 52-year-old male who comes in stating that he cannot walk because his legs give out on him. Patient was seen in the emergency department yesterday for hip pain and was admitted. Patient was discharged this morning because staff in the observation unit states that he was able to walk and stand up straight without problem. Patient denies this. Patient denies any injury or trauma. Patient denies any numbness or weakness. Patient states he can lie straight but he can't stand up straight. Patient denies any swelling patient denies any areas of erythema. Patient denies any back pain. Patient states this started about 2 weeks ago. - Related Data Home Medications Medication Instructions Recorded Confirmed Atorvastatin [Lipitor] 40 mg PO HS 07/09/17 08/23/18 Losartan Potassium [Cozaar] 25 mg PO DAILY 07/09/17 08/23/18 Metoprolol Succinate (ER) [Toprol 25 mg PO DAILY 07/09/17 08/23/18 XL] Acetaminophen [Tylenol] 325 mg PO Q4H PRN 08/22/18 08/23/18 Aspirin EC [Ecotrin] 325 mg PO Q4H PRN 08/22/18 08/23/18 Cholecalciferol (Vitamin D3) 2,000 unit PO DAILY 08/22/18 08/23/18 [Vitamin D3] Docusate [Colace] 100 mg PO DAILY PRN 08/22/18 08/23/18 Ashish-Tin 15 ml PO Q4H PRN 08/22/18 08/23/18 Loperamide [Imodium] 2 mg PO QID PRN 08/22/18 08/23/18 Magnesium Hydroxide [Milk of 2,400 mg PO DAILY PRN 08/22/18 08/23/18 Magnesia] Neomycin/Bacitracin/Polymyxinb 1 applic TOPICAL DAILY PRN 08/22/18 08/23/18 [Neosporin Ointment] Psyllium Husk 100% [Metamucil 6 gm PO TID PRN 08/22/18 08/23/18 Packet] Sudogest 60 Mg 60 mg PO DAILY PRN 08/22/18 08/23/18 cloZAPine [Clozaril] 100 mg PO HS 08/22/18 08/23/18 diphenhydrAMINE HCL [Benadryl] 25 mg PO Q4H PRN 08/22/18 08/23/18 traMADol HCL [Ultram] 50 mg PO TID PRN 08/22/18 08/23/18 Aspirin EC [Ecotrin Low Dose] 81 mg PO DAILY 08/23/18 08/23/18 Previous Rx's Medication Instructions Recorded Divalproex [Depakote] 1,000 mg PO HS #60 tablet. 02/27/16 Allergies Allergy/AdvReac Type Severity Reaction Status Date / Time sulfamethoxazole Allergy Unknown Verified 08/22/18 11:34 [From Bactrim] trimethoprim [From Bactrim] Allergy Unknown Verified 08/22/18 11:34 Review of Systems ROS Statement: Those systems with pertinent positive or pertinent negative responses have been documented in the HPI. ROS Other: All systems not noted in ROS Statement are negative. Past Medical History Past Medical History: Hyperlipidemia, Hypertension History of Any Multi-Drug Resistant Organisms: None Reported Past Surgical History: No Surgical Hx Reported Past Psychological History: Schizophrenia Smoking Status: Current every day smoker Past Alcohol Use History: None Reported Past Drug Use History: None Reported - Past Family History Father Additional Family Medical History / Comment(s): Father is alive at age 85. Patient denies doing any of this history. Mother Additional Family Medical History / Comment(s): Mother is . Patient denies knowing any of her medical history. Brother(s) Additional Family Medical History / Comment(s): Patient has 2 brothers and one sister does not know other medical history. Patient does not have any children. General Exam - General Exam Comments Initial Comments: GENERAL: Patient is well-developed and well-nourished. Patient is nontoxic and well- hydrated and is in no acute distress. ENT: Neck is soft and supple. No significant lymphadenopathy is noted. Oropharynx is clear. Moist mucous membranes. Neck has full range of motion without eliciting any pain. EYES: The sclera were anicteric and conjunctiva were pink and moist. Extraocular movements were intact and pupils were equal round and reactive to light. Eyelids were unremarkable. PULMONARY: Unlabored respirations. Good breath sounds bilaterally. No audible rales rhonchi or wheezing was noted. CARDIOVASCULAR: There is a regular rate and rhythm without any murmurs gallops or rubs. Femoral pulses are equal bilaterally ABDOMEN: Soft and nontender with normal bowel sounds. No palpable organomegaly was noted. There is no palpable pulsatile mass. SKIN: Skin is clear with no lesions or rashes and otherwise unremarkable. NEUROLOGIC: Patient is alert and oriented x3. Cranial nerves II through XII are grossly intact. Motor and sensory are also intact. Normal speech, volume and content. Symmetrical smile. Patient's straight leg test is normal. Patient has no perineum numbness. Patient can lie straight however when you try to stand the patient up he stands half bent over. When standing states she's too weak to walk. Patellar reflexes are diminished bilaterally MUSCULOSKELETAL: Normal extremities with adequate strength and full range of motion. No lower extremity swelling or edema. No calf tenderness. LYMPHATICS: No significant lymphadenopathy is noted PSYCHIATRIC: Normal psychiatric evaluation. Patellar reflexes are diminished bilaterally Course Vital Signs 08/23/18 13:49 Temperature 98.7 F Pulse Rate 77 Respiratory 18 Rate Blood Pressure 112/83 O2 Sat by Pulse 98 Oximetry Medical Decision Making - Medical Decision Making CT of the lumbar spine shows mild disc herniation at L3-L4 I spoke with Dr. Barrientos he agreed to admit the patient admitted the patient I consult the neurology Disposition Clinical Impression: Unable to ambulate, Bilateral hip pain Disposition: ADMITTED IP TO THIS HOSP Referrals: None,Stated [Primary Care Provider] - 1-2 days Time of Disposition: 15:16
--- NOTE | 2018-08-23 14:43 | CT ---
EXAMINATION TYPE: CT lumbar spine wo con DATE OF EXAM: 08/23/2018 2:36 PM COMPARISON: None HISTORY: Low back pain and leg weakness CT DLP: 796.8 mGycm Automated exposure control for dose reduction was used. Unenhanced CT of the lumbar spine was performed. Bone and soft tissue window settings are submitted as well as coronal and sagittal reconstructions. Lumbar vertebra have fairly normal spacing and alignment. There is hypertrophic mild facet arthropath y in the lower lumbar spine. There is no compression fracture. Posterior elements are intact. There i s no lumbar paraspinal mass. At L3-4 there is some ligamentum flavum thickening and also increased density on the right side that could relate to facet arthropathy and synovial cyst formation. There is posterior disc herniation als o at L3-4. IMPRESSION: There is posterior concentric disc herniation at L3-4 with also facet arthropathy and probable small synovial cyst on the right side facet joint. There is L3-4 bony spinal stenosis.
[2018-08-23] MEDS ORDERED: SODIUM CHLORIDE 0.9% 1,000 ML IV ONE (15:17)
[2018-08-23] MEDS ORDERED: ACETAMINOPHEN TAB 325 MG TAB PO PRN (22:35)
[2018-08-23] MEDS ORDERED: NEOMYCIN-BACITRACIN-POLY OINT 14 GM TUBE TOPICAL PRN (22:35)
[2018-08-23] MEDS ORDERED: DOCUSATE 100 MG CAP PO PRN (22:35)
[2018-08-23] MEDS ORDERED: diphenhydrAMINE 25 MG CAP PO PRN (22:35)
[2018-08-23] MEDS ORDERED: traMADol 50 MG TAB PO PRN (22:35)
[2018-08-23] MEDS ORDERED: PSEUDOEPHEDRINE 30 MG TAB PO PRN (22:35)
[2018-08-23] MEDS ORDERED: MAGNESIUM HYDROXIDE 2,400 MG/10 ML CUP PO PRN (22:35)
[2018-08-23] MEDS ORDERED: PSYLLIUM HUSK 100% 6 GM PACKET PO PRN (22:35)
[2018-08-23] MEDS ORDERED: [UNRECOGNIZED DRUG - OTHER] PO PRN (22:35)
[2018-08-23] MEDS ORDERED: LOPERAMIDE 2 MG CAP PO PRN (22:35)
[2018-08-23 22:53] LABS: Appearance,Urine Clear (Clear); Bilirubin,Urine Negative (Negative); Blood,Urine Negative (Negative); Color,Urine Light Yellow; Glucose,Urine (UA) Negative (Negative); Ketones,Urine Negative (Negative); Leukocyte Esterase,Urine Negative (Negative); Nitrite,Urine Negative (Negative); Protein,Urine Negative (Negative); Specific Gravity,Urine 1.008 (1.001-1.035); Urobilinogen,Urine <2.0 mg/dL (<2.0)
[2018-08-23 23:10] LABS: Amphetamine Screen,Urine Not Detected (NotDetected); Barbiturate Screen,Urine Not Detected (NotDetected); Benzodiazepines Screen,Urine Not Detected (NotDetected); Cocaine Screen,Urine Not Detected (NotDetected); Methadone Screen, Urine Not Detected (NotDetected); Opiate Screen,Urine Not Detected (NotDetected); Oxycodone Screen, Urine Not Detected (NotDetected); Phencyclidine Screen,Urine Not Detected (NotDetected); Tricyclic Antidepressant,Urine Not Detected (NotDetected); Urn Cannabinoid Scrn Not Detected (NotDetected)
[2018-08-24 00:41] LABS: Basophils # (A) 0.1 k/uL (0-0.2); Basophils % (A) 0 %; Eosinophils # (A) 0.3 k/uL (0-0.7); Eosinophils % (A) 2 %; HCT 42.5 % (39.0-53.0); HGB 14.1 gm/dL (13.0-17.5); Lymphocytes # (A) 2.3 k/uL (1.0-4.8); Lymphocytes % (A) 17 %; MCH 28.6 pg (25.0-35.0); MCHC 33.1 g/dL (31.0-37.0); MCV 86.4 fL (80.0-100.0); Mean Platelet Volume 7.4; Monocytes # (A) 0.8 k/uL (0-1.0); Monocytes % (A) 6 %; Neutrophils # (A) 9.8 k/uL (1.3-7.7); Neutrophils % (A) 72 %; Platelet Count 157 k/uL (150-450); RBC 4.92 m/uL (4.30-5.90); RDW 13.8 % (11.5-15.5); WBC 13.6 k/uL (3.8-10.6)
[2018-08-24] MEDS: DIVALPROEX 500 MG TABLET.DR PO SCH ×2 (01:06→20:01)
[2018-08-24] MEDS: ATORVASTATIN 40 MG TAB PO SCH ×2 (01:06→20:01)
[2018-08-24] MEDS: cloZAPine 100 MG TAB PO SCH ×2 (02:05→20:01)
[2018-08-24 06:51] LABS: Basophils % (A) 0 %; Eosinophils # (A) 0.3 k/uL (0-0.7); Eosinophils % (A) 3 %; HCT 43.2 % (39.0-53.0); HGB 13.9 gm/dL (13.0-17.5); Lymphocytes # (A) 2.3 k/uL (1.0-4.8); Lymphocytes % (A) 22 %; MCHC 32.2 g/dL (31.0-37.0); MCV 86.8 fL (80.0-100.0); Mean Platelet Volume 7.4; Monocytes # (A) 0.6 k/uL (0-1.0); Monocytes % (A) 5 %; Neutrophils % (A) 68 %; Platelet Count 168 k/uL (150-450); RBC 4.97 m/uL (4.30-5.90); RDW 14.4 % (11.5-15.5); WBC 10.4 k/uL (3.8-10.6)
[2018-08-24 07:11] LABS: African American GFR (CKD) >90 (>60 ml/min/1.73 sqM); Anion Gap 3 mmol/L; Blood Urea Nitrogen 12 mg/dL (9-20); Calcium 8.3 mg/dL (8.4-10.2); Carbon Dioxide 30 mmol/L (22-30); Chloride 111 mmol/L (98-107); Glucose 92 mg/dL (74-99); Potassium 4.1 mmol/L (3.5-5.1); Sodium 144 mmol/L (137-145)
[2018-08-24] MEDS: CHOLECALCIFEROL 1,000 UNIT TAB PO SCH (09:32)
[2018-08-24] MEDS: ASPIRIN 81 MG PO SCH (09:32)
[2018-08-24] MEDS: METOPROLOL SUCCINATE (ER) 25 MG TAB.ER.24H PO SCH (09:32)
[2018-08-24] MEDS: LOSARTAN 25 MG TAB PO SCH (09:32)
[2018-08-24] MEDS: NICOTINE 14MG/24HR PATCH TRANSDERM SCH (13:43)
--- NOTE | 2018-08-24 17:20 | P.CNNES ---
History of Present Illness Consult date: 08/24/18 Reason for Consult: Inability to ambulate History of Present Illness: Patient is a 52-year-old male, with history of psychiatric disorder, states that on 08/18/2018 he developed low back pain, and then developed difficulty with walking. Prior to that he was perfectly fine. He denies any numbness or tingling in the legs, or any hip pain. He states he has borderline diabetes but denies any hypertension. Denies any symptoms in the neck, or symptoms attributed to the upper extremities. Patient denies any falls or trauma. Patient underwent blood test in which his Chem-7 is normal. Calcium is 8.3. CBC is normal. ESR 2. CRP 6.4 which is normal. UA negative. Urine drug screen negative. Hemoglobin A1c 5.8 on 07/29/2015. Patient had CT of the lumbar spine on 08/23/2018, which revealed posterior concentric disc herniation at L3 4 with also facet arthropathy and probable small synovitis cyst on the right side facet joint. There is L3 [address] of the pelvis showed no acute fracture or malalignment of the pelvis. Moderate femoral acetabular arthropathy, right greater than left. Review of Systems As mentioned in HPI. Otherwise completely negative. Denies any chest pain shortness of breath, double vision or loss of vision. Past Medical History Past Medical History: Hyperlipidemia, Hypertension Additional Past Medical History / Comment(s): schizophrenia History of Any Multi-Drug Resistant Organisms: None Reported Past Surgical History: No Surgical Hx Reported Past Psychological History: Schizophrenia Smoking Status: Current every day smoker Past Alcohol Use History: None Reported Additional Past Alcohol Use History / Comment(s): Patient is a smoker half pack of cigarettes per day since he was 22 years of age. He denies any medical marijuana, marijuana, street drug or alcohol use. Past Drug Use History: None Reported - Past Family History Father Additional Family Medical History / Comment(s): Father is alive at age 85. Patient denies doing any of this history. Mother Additional Family Medical History / Comment(s): Mother is . Patient denies knowing any of her medical history. Brother(s) Additional Family Medical History / Comment(s): Patient has 2 brothers and one sister does not know other medical history. Patient does not have any children. Medications and Allergies Home Medications Medication Instructions Recorded Confirmed Type Divalproex [Depakote] 1,000 mg PO HS #60 tablet. 02/27/16 08/23/18 Rx Atorvastatin [Lipitor] 40 mg PO HS 07/09/17 08/23/18 History Losartan Potassium [Cozaar] 25 mg PO DAILY 07/09/17 08/23/18 History Metoprolol Succinate (ER) [Toprol 25 mg PO DAILY 07/09/17 08/23/18 History XL] Acetaminophen [Tylenol] 325 mg PO Q4H PRN 08/22/18 08/23/18 History Aspirin EC [Ecotrin] 325 mg PO Q4H PRN 08/22/18 08/23/18 History Cholecalciferol (Vitamin D3) 2,000 unit PO DAILY 08/22/18 08/23/18 History [Vitamin D3] Docusate [Colace] 100 mg PO DAILY PRN 08/22/18 08/23/18 History Ashish-Tin 15 ml PO Q4H PRN 08/22/18 08/23/18 History Loperamide [Imodium] 2 mg PO QID PRN 08/22/18 08/23/18 History Magnesium Hydroxide [Milk of 2,400 mg PO DAILY PRN 08/22/18 08/23/18 History Magnesia] Neomycin/Bacitracin/Polymyxinb 1 applic TOPICAL DAILY PRN 08/22/18 08/23/18 History [Neosporin Ointment] Psyllium Husk 100% [Metamucil 6 gm PO TID PRN 08/22/18 08/23/18 History Packet] Sudogest 60 Mg 60 mg PO DAILY PRN 08/22/18 08/23/18 History cloZAPine [Clozaril] 100 mg PO HS 08/22/18 08/23/18 History diphenhydrAMINE HCL [Benadryl] 25 mg PO Q4H PRN 08/22/18 08/23/18 History traMADol HCL [Ultram] 50 mg PO TID PRN 08/22/18 08/23/18 History Aspirin EC [Ecotrin Low Dose] 81 mg PO DAILY 08/23/18 08/23/18 History Allergies Allergy/AdvReac Type Severity Reaction Status Date / Time sulfamethoxazole Allergy Unknown Verified 08/22/18 11:34 [From Bactrim] trimethoprim [From Bactrim] Allergy Unknown Verified 08/22/18 11:34 Physical Examination - Vital Signs Vital Signs: Vital Signs Temp Pulse Resp BP BP Pulse Ox 08/24/18 16:00 65 18 08/24/18 15:23 98.4 F 65 18 97/60 99 08/24/18 12:00 77 18 08/24/18 08:00 77 18 08/24/18 07:00 97.5 F L 77 18 113/62 98 08/24/18 03:04 59 L 16 08/23/18 23:15 59 L 16 08/23/18 23:01 98.3 F 59 L 16 103/63 97 08/23/18 20:00 18 Intake and Output 08/24/18 08/24/18 08/24/18 06:59 14:59 22:59 Intake Total 440 Output Total 250 900 300 Balance -250 -460 -300 Intake: Oral 240 Other 200 Output: Urine 250 900 300 Other: Voiding Method Toilet Toilet Toilet # Voids 1 On examination patient's mental status, speech and language functions are normal. Cranial nerves are all normal. Visual brown are full and face is symmetric. On muscle strength testing the strength is completely normal in the arms distally and proximally. In the lower limbs his hip flexion 5, knee extension is normal 5 bilaterally. Hip adduction is normal, but hip abduction is 4+ bilaterally. Patient has partial bilateral foot drop, with Ankle dorsiflexion, inversion and peronei are all 3+ to 4-bilaterally. Toe extension is 3, toe flexion 4-. Reflexes are 0 at the biceps, 0 at the right brachioradialis, trace on the left brachioradialis. Knees are 1+ and absent ankles bilaterally and plantars are flat bilaterally. No ataxia for [id number]. Tone and bulk of muscles normal. Sensations to touch is equal Results - Laboratory Findings CBC and BMP: 08/24/18 06:28 08/24/18 06:28 Abnormal Lab Findings: Abnormal Labs 08/24/18 08/24/18 00:17 06:28 WBC 13.6 H Neutrophils # 9.8 H Chloride 111 H Calcium 8.3 L Assessment and Plan Assessment: * 52-year-old male with one-week history of acute back pain, with bilateral foot drop. Rule out spinal stenosis/lumbar disc herniation. No evidence of trauma or falls. Plan: * Patient needs stat MRI of the lumbar and thoracic spine to evaluate for spinal stenosis/lumbar disc herniation. * May need EMG and nerve conductions of bilateral lower extremities, if MRI does not reveal any obvious pathology. * We will check B12, folate, RPR, hemoglobin A1c, TSH, BRITTANY.
[2018-08-25] MEDS: NICOTINE 14MG/24HR PATCH TRANSDERM SCH (08:25)
[2018-08-25] MEDS: ASPIRIN 81 MG PO SCH (08:25)
[2018-08-25] MEDS: CHOLECALCIFEROL 1,000 UNIT TAB PO SCH (08:25)
--- NOTE | 2018-08-25 08:34 | HP ---
HISTORY AND PHYSICAL CHIEF COMPLAINT: Weakness. HISTORY OF PRESENT ILLNESS: This 52-year-old gentleman with a past medical history of hypertension, hyperlipidemia, and schizophrenia, was recently admitted with bilateral hip pain and generalized weakness and with some weakness. The patient is monitored closely. Orthopedics saw the patient. DJD was diagnosed on the x-rays and CT scan and the patient was given symptomatic treatment. Patient is able to ambulate, but however the patient went to the [facility] home where the patient is staying on the 2nd floor and the patient complains of severe weakness, patient admitted for further evaluation and treatment. Neurology evaluation in progress at this time. There is no history of fever, rigors. No headache, loss of consciousness, seizures. PAST MEDICAL HISTORY: History of hypertension, hyperlipidemia, schizophrenia. MEDICATIONS: Home medications are: 1. Ecotrin 81 mg daily. 2. Tylenol 320 q.4h p.r.n. 3. Ultram 50 mg t.i.d. 4. Benadryl 25 mg q.4. 5. Clozaril 100 mg q.h.s. 6. Sudafed 60 mg daily p.r.n. 7. Metamucil 6 g p.o. t.i.d. p.r.n. 8. Neosporin 1 application daily p.r.n. 9. Toprol-XL 25 mg p.o. 10.Magnesia 2.4 daily p.r.n. 11.Cozaar 25 mg p.o. daily. 12.Imodium 2 mg p.o. daily p.r.n. 13. 50 mg q.4 p.r.n. 14.Colace 100 mg daily p.r.n. 15.Depakote 1000 mg q.h.s. 16.Vitamin D3 2000 daily. 17.Lipitor 40 mg q.h.s. 18.Ecotrin 325 mg q.4 p.r.n. ALLERGIES: BACTRIM. FAMILY HISTORY: No history of heart disease or strokes in the family. SOCIAL HISTORY: History of smoking. No alcohol. REVIEW OF SYSTEMS: ENT: No diminished vision. CARDIOVASCULAR: No angina. RESPIRATORY: No cough. GI: No nausea. : No dysuria. NERVOUS SYSTEMS: As mentioned earlier. ALLERGY/IMMUNOLOGY: No asthma or hayfever. MUSCULOSKELETAL: As mentioned. HEMATOLOGY: No history of anemia. ENDOCRINE: No history of diabetes or hypothyroid. CONSTITUTIONAL: As mentioned earlier. DERMATOLOGY: Negative. RHEUMATOLOGY: Negative. PSYCHIATRY: As mentioned earlier. PHYSICAL EXAM: Patient is alert, oriented x3. Pulse is 77, blood pressure 130/60, respiration 18, temperature 97.4, pulse ox 98% on room air. HEENT: Conjunctivae normal. Oral mucosa moist. Neck is no jugular venous distention. No carotid bruit. No lymph node enlargement. CARDIOVASCULAR: S1, S2. respiratory: Breath sounds diminished in the bases. Scattered rhonchi and crackles. ABDOMEN: Soft, nontender. No mass palpable. LEGS: No edema. NERVOUS SYSTEM: Power is grade 5/5. Otherwise, the gait, the patient is reporting patient is unable to walk and the patient is limping to the ground. SKIN: No rash or ulcer. JOINTS: No active deforming arthropathy. LABS: WBC 10.2, hemoglobin 13.2. UA noted. ASSESSMENT: 1. Generalized weakness and tiredness for evaluation. 2. History of bilateral hip and lumbar degenerative joint disease. 3. Hypertension. 4. Hyperlipidemia. 5. History of schizophrenia. 6. History of nicotine dependence, continued ongoing. 7. Bilateral degenerative joint disease and lumbar degenerative joint disease in the CT scan. RECOMMENDATIONS AND DISCUSSION: In this 52-year-old gentleman who presented with multiple medical issues, will monitor the patient closely. Continue the current management and symptomatic treatment. We will resume the current medications. We will recommend Psychiatry and Neurology consultation for continued evaluation. Otherwise, the prognosis guarded because of multiple complex medical issues. Further recommendations to follow. MMODL / IJN: [id number] /
[2018-08-25 09:45] LABS: Folate, Serum 6.6 ng/mL
[2018-08-25 11:28] LABS: Hemoglobin A1C 5.4 % (4.0-6.0)
[2018-08-25] MEDS: LOSARTAN 25 MG TAB PO SCH (11:58)
[2018-08-25] MEDS: METOPROLOL SUCCINATE (ER) 25 MG TAB.ER.24H PO SCH (11:58)
[2018-08-25] MEDS ORDERED: LORazepam 2 MG/ML INJ IV STA (14:45)
--- NOTE | 2018-08-25 16:15 | P.PN ---
Subjective This is a pleasant 52 years old male with past medical history of hyperlipidemia, hypertension, schizophrenia, current every day smoker he smokes cigarettes for 24 years. Patient has a legal guardian. Patient states he came to the hospital because of difficulty walking, patient defers to his problems to the pelvis and both hips. He also was complaining of from 1 week history of back pain and bilateral foot drops as per her neurological evaluation. CAT scan of the lumbar spine showing disc herniation and possible spinal stenosis at L3 and L4. Neurologist recommended MRI of the lumbar and thoracic spine. However patient could not do it today because he felt scared. I talked to the patient today with a recommendation to order Ativan or anxiolytic however he is refusing to do the test. Discussed with staff and we are awaiting further neurological team input. I called the public guardian office at [phone] and left a message to call me back , Still pending Objective - Vital Signs Vital signs: Vital Signs Temp 98.3 F 08/25/18 15:41 Pulse 68 08/25/18 15:41 Resp 16 08/25/18 15:41 BP 96/55 08/25/18 15:41 Pulse Ox 95 08/25/18 15:41 Intake & Output 08/24/18 08/25/18 08/25/18 18:59 06:59 18:59 Intake Total 920 240 Output Total 1500 700 900 Balance -580 -700 -660 Intake: Oral 720 240 Other 200 Output: Urine 1500 700 900 Other: Voiding Method Toilet Toilet Toilet - Exam GENERAL: The patient is alert and oriented x3, not in any acute distress. Well developed, well nourished. HEENT: Pupils are round and equally reacting to light. EOMI. No scleral icterus. No conjunctival pallor. Normocephalic, atraumatic. No pharyngeal erythema. No th yromegaly. CARDIOVASCULAR: S1 and S2 present. No murmurs, rubs, or gallops. PULMONARY: Chest is clear to auscultation, no wheezing or crackles. ABDOMEN: Soft, nontender, nondistended, normoactive bowel sounds. No palpable organomegaly. MUSCULOSKELETAL: No joint swelling or deformity. EXTREMITIES: No cyanosis, clubbing, or pedal edema. NEUROLOGICAL: Gross neurological examination did not reveal any focal deficits. Patient could trace his both legs against gravity with no difficulty SKIN: No rashes. - Labs CBC & Chem 7: 08/24/18 06:28 08/24/18 06:28 Assessment and Plan Assessment: Generalized weakness and tiredness with Difficulty walking, neurologist evaluated the patient and workup is ordered Nicotine dependence History of bilateral hip and lumbar degenerative joint disease Hypertension Hyperlipidemia History of schizophrenia Plan: This is a pleasant 52 years old male who presents with weakness, possible difficulty walking that he required MRI of the lumbar and thoracic spine. Patient could not tolerate the MRI of the lumbar spine today. Ativan discomfort prior to the next MRI and discussed with the patient the importance of the test. Public guardian has been paged. Labs and medication were reviewed.. Continue same treatment. Continue with sym ptomatic treatment. Resume home medication. Monitor lytes and vitals. DVT and GI prophylaxis. Further recommendations of the clinical course of the patient DVT prophylaxis: Subcutaneous heparin GI Prophylaxis: Pepcid PT/OT: Evaluated the patient and recommended walker. Prognosis is guarded
--- NOTE | 2018-08-25 17:57 | P.PN ---
Subjective Progress Note Date: 08/25/18 Patient denies any changes in his condition. MRI was attempted, patient could not tolerate, due to severe claustrophobia. Patient was recommended premedication with Ativan, but he is still declining. Discussed with nursing detail, who also tried to explain to the patient but he is still declining the M RI. States he walks with a walker and felt better. No new neurological symptoms Objective - Vital Signs Vital signs: Vital Signs Temp 98.3 F 08/25/18 15:41 Pulse 72 08/25/18 16:00 Resp 16 08/25/18 16:00 BP 96/55 08/25/18 15:41 Pulse Ox 95 08/25/18 15:41 Intake & Output 08/24/18 08/25/18 08/25/18 18:59 06:59 18:59 Intake Total 920 660 Output Total 1500 700 900 Balance -580 -700 -240 Intake: Oral 720 660 Other 200 Output: Urine 1500 700 900 Other: Voiding Method Toilet Toilet Toilet - Exam Deferred. No change. - Labs CBC & Chem 7: 08/24/18 06:28 08/24/18 06:28 Assessment and Plan Assessment: * 52-year-old male with one-week history of acute back pain, with bilateral foot drop. Rule out spinal stenosis/lumbar disc herniation. No evidence of trauma or falls. Plan: * Patient needs stat MRI of the lumbar and thoracic spine to evaluate for spinal stenosis/lumbar disc herniation. Patient could not tolerate MRI due to severe claustrophobia. Premedication with Ativan 1-2 mg IV prior to MRI was recommended but he is still declining. May obtain an open MRI of the lumbar spine as outpatient. Patient however will be a fall risk. * May need EMG and nerve conductions of bilateral lower extremities, if MRI does not reveal any obvious pathology. * B12 752, folate 6.6, RPR nonreactive, hemoglobin A1c 5.4, TSH 1.5 normal, BRITTANY pending. * If declines MRI, then may ask him to sign papers out for AGAINST MEDICAL ADVICE.
[2018-08-25] MEDS: FAMOTIDINE 20 MG/2 ML VIAL IV SCH (21:06)
[2018-08-25] MEDS: ATORVASTATIN 40 MG TAB PO SCH (21:06)
[2018-08-25] MEDS: HEPARIN SODIUM,PORCINE 5,000 UNIT/ML 1 ML VIAL SQ SCH (21:06)
[2018-08-25] MEDS: cloZAPine 100 MG TAB PO SCH (21:07)
[2018-08-25] MEDS: DIVALPROEX 500 MG TABLET.DR PO SCH (21:07)
[2018-08-26] MEDS: ASPIRIN 81 MG PO SCH (08:46)
[2018-08-26] MEDS: HEPARIN SODIUM,PORCINE 5,000 UNIT/ML 1 ML VIAL SQ SCH (08:47)
[2018-08-26] MEDS: LOSARTAN 25 MG TAB PO SCH (08:47)
[2018-08-26] MEDS: CHOLECALCIFEROL 1,000 UNIT TAB PO SCH (08:47)
[2018-08-26] MEDS: FAMOTIDINE 20 MG/2 ML VIAL IV SCH (08:47)
[2018-08-26] MEDS: NICOTINE 14MG/24HR PATCH TRANSDERM SCH (08:47)
[2018-08-26] MEDS: METOPROLOL SUCCINATE (ER) 25 MG TAB.ER.24H PO SCH (08:48)
--- NOTE | 2018-08-26 13:19 | P.PN ---
Subjective Progress Note Date: 08/26/18 Patient states he is walking with a walker. His muscles feels tight. Patient still declining MRI. MRI was attempted previously, patient could not tolerate, due to severe claustrophobia. Patient was recommended premedication with Ativan, but he is still declining. Discussed with nursing detail, who also tried to explain to the patient but he is still declining the MRI. States he walks with a walker and felt better. No new neurological symptoms Objective - Vital Signs Vital signs: Vital Signs Temp 98.0 F 08/26/18 07:00 Pulse 80 08/26/18 07:00 Resp 18 08/26/18 07:00 BP 104/64 08/26/18 07:00 Pulse Ox 98 08/26/18 07:00 Intake & Output 08/25/18 08/26/18 08/26/18 18:59 06:59 18:59 Intake Total 660 1084 Output Total 900 300 Balance -240 -300 1084 Intake: Oral 660 1084 Output: Urine 900 300 Other: Voiding Method Toilet Toilet Toilet - Exam Patient's mental status, speech and language functions are stable at baseline. No cranial nerve dysfunction. Muscle strength normal in the arms. Hip flexion is 4+, hip adduction is normal, hip abduction 4 bilaterally. Knee extension is normal. Knee flexion 4+ to 5-bilaterally. Ankle dorsiflexion 3-3+ bilaterally. Reflexes are 1 at the knees, absent ankles bilaterally. Plantar is downgoing on the left, but questionable up on the right. - Labs CBC & Chem 7: 08/24/18 06:28 08/24/18 06:28 Assessment and Plan Assessment: * 52-year-old male with one-week history of acute back pain, with bilateral foot drop. Patient has weakness mainly in bilateral L5-S1 distribution. Rule out spinal stenosis/lumbar disc herniation. No evidence of trauma or falls. Plan: * Patient needs stat MRI of the lumbar and thoracic spine to evaluate for spinal stenosis/lumbar disc herniation. Patient still declining MRI. He does not want open MRI either. May consider neurosurgical consultation for spinal stenosis. Patient may need CT myelogram if he agrees. However he would need neurosurgical evaluation before proceeding with CT myelogram. * EMG and nerve conductions of bilateral lower extremities. * B12 752, folate 6.6, RPR nonreactive, hemoglobin A1c 5.4, TSH 1.5 normal, BRITTANY negative.
[2018-08-26 15:34] VITALS: BP 98/61; PULSE 75; RESP 17; TEMP 98.8
== END 2018-08-26 18:55 | disposition short-term general hospital (02) ==
LOC: EC 13:37 → 1SOBS 15:23
PROVIDERS: ADMIT Hospitalist; ATTEND Hospitalist
DX: R53.1 Weakness (principal); R53.83 Other fatigue; M16.0 Bilateral primary osteoarthritis of hip; M47.816 Spondylosis without myelopathy or radiculopathy, lumbar region; M21.372 Foot drop, left foot; M21.371 Foot drop, right foot; M51.26 Other intervertebral disc displacement, lumbar region; M48.061 Spinal stenosis, lumbar region without neurogenic claudication; I10 Essential (primary) hypertension; R73.03 Prediabetes; E78.5 Hyperlipidemia, unspecified; F40.240 Claustrophobia; F20.9 Schizophrenia, unspecified; F17.210 Nicotine dependence, cigarettes, uncomplicated; Z79.899 Other long term (current) drug therapy; Z79.82 Long term (current) use of aspirin; Z79.891 Long term (current) use of opiate analgesic; Z88.2 Allergy status to sulfonamides; Z91.19 Patient's noncompliance with other medical treatment and regimen; Z91.81 History of falling
CPT/HCPCS: 72131; 80048; 80306; 81003; 82607; 82746; 83036; 84443; 85025; 86334; 86780; 96361; 96372; 96374; 96376; 99285

== ENCOUNTER 2020-08-30 07:42 | Day surgery (SDC) | payer MEDICARE, OTHER ==
[2020-08-26 16:09] VITALS: BMI 27.6
[~2020-08-30 07:42] MED LIST: LACTATED RINGERS 1,000 ML IV SCH
[2020-08-30 08:24] VITALS: RESP 16; TEMP 97.7
[2020-08-30] MEDS ORDERED: LIDOCAINE 1% (10MG/ML) FOR IV START INTRADERMA ONE (08:29)
[2020-08-30] MEDS ORDERED: PROPOFOL 10 MG/ML 20 ML VIAL IV ONE (09:08)
[2020-08-30] MEDS ORDERED: LIDOCAINE 1% INJ 10MG/ML (20 ML MDV) ONE (09:08)
--- NOTE | 2020-08-30 09:55 | P.PCN ---
Date of Procedure: 08/30/20 Description of Procedure: BRIEF HISTORY: Patient is a 54-year-old male presenting for outpatient colonoscopy for positive FOBT/other fecal abnormalities. No prior colonoscopy. No blood per rectum reported PROCEDURE PERFORMED: Colonoscopy with polypectomy. PREOPERATIVE DIAGNOSIS: Positive FOBT, other fecal abnormalities, no prior colonoscopy. ESTIMATED BLOOD LOSS: Minimal. IV sedation per Anesthesia. PROCEDURE: After informed consent was obtained, the patient, was brought into the endoscopy unit. IV sedation was administered by Anesthesia under continuous monitoring. Digital rectal examination was normal. Initially the Olympus CF-190 flexible video colonoscope was then inserted in the rectum, gradually advanced into the cecum without any difficulty. Careful examination was performed as the scope was gradually being withdrawn. Ileocecal valve and the appendiceal orifice were visualized and appeared normal. Prep was excellent. Mucosa of the cecum, ascending colon, transverse colon, descending colon, sigmoid colon, and rectum appeared normal. A sessile 8 mm descending colon polyp was removed with hot snare polypectomy. 2 ascending colon polyps measuring 4 and 5 mm in size removed with cold snare polypectomy. Diminutive polyps measuring 1-2 mm in size removed from the ileocecal valve, hepatic flexure 2, and splenic flexure. Pedunculated 11 mm rectal polyp removed with hot snare polypectomy.. Retroflexion was performed in the rectum and no lesions were seen, low-grade internal hemorrhoids noted. The patient tolerated the procedure well. IMPRESSION: Pedunculated rectal polyp removed with hot snare polypectomy. Sessile descending colon polyp removed with hot snare polypectomy. Flat ascending colon polyps removed with cold snare polypectomy 2. Diminutive polyps removed from the ileocecal valve, hepatic flexure 2 and splenic flexure with cold forcep polypectomy. Internal hemorrhoids. RECOMMENDATIONS: Findings of this examination were discussed with the patient and his care worker. Okay to resume diet. Okay to resume medications. Await pathology from polypectomy. Recommend repeat colonoscopy in 3 years pending pathology from polypectomy for colon polyps.
[2020-08-30 10:26] VITALS: BP 107/68; PULSE 77
== END 2020-08-30 11:00 | disposition home or self-care (01) ==
LOC: ORWHC2ENDO 07:42
PROVIDERS: ATTEND Internal Medicine
DX: D12.4 Benign neoplasm of descending colon (principal); D12.2 Benign neoplasm of ascending colon; D12.3 Benign neoplasm of transverse colon; D12.8 Benign neoplasm of rectum; K63.5 Polyp of colon; K64.8 Other hemorrhoids; Z72.0 Tobacco use; I10 Essential (primary) hypertension; F17.210 Nicotine dependence, cigarettes, uncomplicated; F20.9 Schizophrenia, unspecified; Z79.82 Long term (current) use of aspirin; Z79.899 Other long term (current) drug therapy; Z88.2 Allergy status to sulfonamides; Z88.8 Allergy status to other drugs, medicaments and biological substances
CPT/HCPCS: 88305; 45380; 45385; J2001; J2704

== ENCOUNTER 2023-12-11 07:28 | Day surgery (SDC) | payer MEDICARE, OTHER ==
[2023-12-11] MEDS: IV FLUID CONTINUATION 1,000 ML IV ONE (07:57)
[2023-12-11 08:03] VITALS: TEMP 97.8
[2023-12-11] MEDS ORDERED: PHENYLEPHRINE-0.9% NACL SYG 1,000 MCG/10 ML SYRINGE ONE (08:43)
[2023-12-11] MEDS ORDERED: PROPOFOL 10 MG/ML 20 ML VIAL IV ONE (08:43)
--- NOTE | 2023-12-11 09:14 | P.PCN ---
Date of Procedure: 12/11/23 Procedure(s) Performed: BRIEF HISTORY: Patient is a 58-year-old pleasant white male scheduled for an elective colonoscopy as a part of screening for colon cancer/positive Cologuard PROCEDURE PERFORMED: Colonoscopy with snare polypectomy and Endo Clip placement. PREOPERATIVE DIAGNOSIS: Screening for colon cancer/positive Cologuard. IV sedation per Anesthesia. PROCEDURE: After informed consent was obtained, the patient, was brought into the endoscopy unit. IV sedation was administered by Anesthesia under continuous monitoring. Digital rectal examination was normal. Initially the Olympus CF-160 flexible video colonoscope was then inserted in the rectum, gradually advanced into the cecum without any difficulty. Careful examination was performed as the scope was gradually being withdrawn. Ileocecal valve and the appendiceal orifice were visualized and appeared normal. Prep was excellent. Mucosa of the cecum, had a 1.5 cm broad-based polyp removed by snare polypectomy followed by Endo Clip placement. In the ascending colon there was a 2.5 cm broad-based polyp removed by piecemeal snare polypectomy and complete polypectomy accomplished following which Endo Clip was placed. In the transverse colon there was a 5 mm and 7 mm polyp that was removed by cold snare polypectomy. In the sigmoid colon there was a 1 cm polyp removed by snare polypectomy. Scattered left-sided diverticulosis seen. Rest of the descending colon, sigmoid colon, and rectum appeared normal. Retroflexion was performed in the rectum and no lesions were seen. The patient tolerated the procedure well. IMPRESSION: 1.5 cm broad-based cecal polyp status post snare polypectomy followed by end of Endo Clip placement 2.5 cm broad-based ascending colon polyp status post piecemeal snare polypectomy and complete polypectomy accomplished followed by Endo Clip placement 5 mm and 7 mm transverse colon polyp status post polypectomy 1 cm sigmoid colon polyp status post polypectomy scattered sigmoid diverticulosis RECOMMENDATIONS: Findings of this examination were discussed with the patient as well as his family. He was advised to follow with the biopsy results. If the biopsy reveals adenoma he can have repeat colonoscopy in 3 years..
[2023-12-11 09:38] VITALS: BP 114/74; PULSE 74; RESP 18
== END 2023-12-11 09:50 | disposition home or self-care (01) ==
LOC: ORWHC2ENDO 07:28
PROVIDERS: ATTEND Internal Medicine Gastroenterology
DX: R19.5 Other fecal abnormalities
CPT/HCPCS: 45385; 88305

== ENCOUNTER → 2024-06-02 | Outpatient (CLI) | payer MEDICARE, OTHER ==
--- NOTE | 2024-06-02 14:34 | CTL ---
EXAMINATION TYPE: CT Low Dose Lung DATE OF EXAM ORDERED: 06/02/2024 COMPARISON: Chest radiograph 02/03/2026, CT chest 02/04/2015 CLINICAL INDICATION: Male, 58 years old with history of Z12.2 LUNG CA SCR F17.210 CURRENT SMOKER; [facility] , , Lung cancer screening, History of Smoking/tobacco use. TECHNIQUE: Low dose computed tomography scan was performed through the chest at 1 mm thick sections a nd reconstructed images in multiple planes at 1 mm and [address] DLP: 62 mGycm Automated exposure control for dose reduction was used. CT DIAGNOSTIC QUALITY: Limited, but interpretable FINDINGS: Nodules: 2 mm right middle lobe nodule along the right major fissure (series 8, image 39). LUNGS: COPD: Severity: None Fibrosis: Severity: None Lymph nodes: None Other findings: None RIGHT PLEURAL SPACE: Effusion: None Calcification: None Thickening: None Pneumothorax: None LEFT PLEURAL SPACE: Effusion: None Calcification: None Thickening: None Pneumothorax: None HEART: Heart Size: Normal Coronary Calcification: Moderate Pericardial Effusion: None OTHER FINDINGS: Upper abdomen: None Bony thorax: None Supraclavicular region: None Other: Minimal bilateral gynecomastia. IMPRESSION: Right middle lobe [address] LUNG RAD AND CT CHEST RECOMMENDATION: Lung-Rad 2 Benign Appearance or Behavior: Continue annual sc reening with LDCT in 12 months. S Modifier (other clinically significant findings): None [facility], , 06/02/2024 2:32 PM
== END | disposition home or self-care (01) ==
LOC: RADCTMAIN 14:12
PROVIDERS: ATTEND Internal Medicine Hematology & Oncology
DX: Z12.2 Encounter for screening for malignant neoplasm of respiratory organs (principal); F17.210 Nicotine dependence, cigarettes, uncomplicated; R91.1 Solitary pulmonary nodule
CPT/HCPCS: 71271